=== PATIENT | male | born 1975 | race Caucasian/White ===

== ENCOUNTER 2021-04-26 17:45 | Outpatient (REF) | payer MEDICAID, SELFPAY ==
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
== END 2021-04-26 17:46 | disposition home or self-care (01) ==
LOC: HO.MRI 17:45
PROVIDERS: PCP Family Medicine; Visit Provider Family Medicine
DX: R42 Dizziness and giddiness (principal)
CPT/HCPCS: 70551

== ENCOUNTER 2021-05-17 08:43 | Outpatient (REF) | payer MEDICAID, SELFPAY ==
--- NOTE | ~2021-05-17 | MR_ITS ---
EXAMINATION: MRI BRAIN WITH IV CONTRAST CLINICAL INFORMATION: Call back to follow-up with contrast. COMPARISON: Brain MRI 04/26/2021. TECHNIQUE: Postcontrast imaging of the brain is obtained following the administration of 10 mL of Gadavist intravenous contrast without complication. 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 Signal changes at sites of DVAs have been proposed to be secondary to gliosis and/or chronic demyelination. There are no suspicious enhancing lesions intracranially.
== END 2021-05-17 08:44 | disposition home or self-care (01) ==
LOC: HO.MRI 08:43
PROVIDERS: PCP Family Medicine; Visit Provider Family Medicine
DX: R90.89 Other abnormal findings on diagnostic imaging of central nervous system (principal)
CPT/HCPCS: 70552; A9585

== ENCOUNTER → 2021-08-25 08:03 | Outpatient (REF) | payer MEDICAID, SELFPAY ==
--- NOTE | 2021-08-25 08:08 | CA_ITS ---
Transthoracic Echocardiogram Patient (Last, First, Middle): Kp Mackay L Gender: Male Date of : 1975 Age: 45 Procedure Date: 08/25/2021 Procedure Type: Transthoracic Echocardiogram Location: OP Height: 185.42 cm Weight: 90.72 kg BSA: 2.15 m2 Heart Rate: bpm BP: 115 / 80 mmHg Cable Supervisor: TITA John MD: Karla Barron DO Staff Developer: Chriss Carey MD Symptoms: R42 DIZZINESS GIDDINESS Study Quality: Fair ECG Rhythm: Sinus Conclusions: - 1. Normal LV systolic function with possible hypokinesis of the basal inferior segment 2. Normal cardiac valvular Doppler 3. Normal RV systolic pressure 4. No gross pericardial effusion Findings Left Ventricle Normal left ventricular size, thickness, and systolic function. The visually estimated ejection fraction is between 60-65%. Spectral Doppler is indicative of a normal filling pattern. Wall Motion Rest Echo Findings The basal inferior segment is hypokinetic. All other scored wall segments showed normal motion. Right Ventricle Normal right ventricular cavity size and systolic function. Atria Both atria are normal in size. There is no evidence of interatrial shunt. Aortic Valve Normal aortic valve structure and function. There is no aortic valve stenosis. There is no aortic valve regurgitation. Mitral Valve There is trace mitral valve regurgitation. There is no mitral valve stenosis. Pulmonic Valve The pulmonic valve is likely normal. Tricuspid Valve Normal tricuspid valve structure. There is trace tricuspid valve regurgitation. The right ventricular systolic pressure is normal. The right ventricular systolic pressure is 25 mmHg. Normal right atrial pressure. There is no evidence of pulmonary hypertension. Great Vessels All visible segments of the aorta are normal in size. The pulmonary artery was not well visualized. Venous The inferior vena cava is normal in size and collapses greater than 50% with inspiration. Pericardium/Pleural There is no evidence of pericardial effusion. Prior Study Comparison No significant change compared to prior study dated: 12/16/2019. Measurements 2D Linear Measurements IVSd: 0.95 0.6-0.9/0.6-1.0 cm LVIDd: 4.74 3.9-5.3/4.2-5.9 cm LVIDd Index: 2.20 2.4-3.2/2.2-3.1 cm/m2 LVIDs: 2.97 2.0-3.6 cm LVPWd: 0.91 0.7-1.1 cm Ao Root: 3.20 2.1-3.5 cm LA Diam: 3.40 2.7-3.8/3.0-4.0 cm LAIDs Index: 1.58 1.5-2.3 cm/m2 LV Mass: 188.10 67-162/88-224 g LV Mass Index: 87.49 43-95/49-115 g/m2 LVOT Diam: 2.20 3.0+(-)1.3 cm 2D Systolic Function EF 4C: 58.80 >55% EF 2C: 62.10 >55% EF BiP: 62.20 >55% Mitral Valve MV Pk E: 0.72 MV PK A: 0.46 MV Decel Time: 453.00 E/A: 1.60 E'Lateral: 12.40 E'Medial: 11.40 E/E' Med: 6.30 E/E' Lat: 5.80 PHT: 133.00 MVA PHT: 1.65 Decel Divide: 1.58 Aortic Valve AoV Pk Alec: 1.19 AoV Mn Alec: 0.87 AoV VTI: 0.28 AoV Pk Grad: 6.00 Aov Mn Grad: 3.00 CLIF Cont.VTI: 3.27 LVOT LVOT Pk Alec: 1.12 LVOT Mn Alec: 0.83 LVOT VTI: 0.24 LVOT Pk Grad: 5.00 LVOT Mn Grad: 3.00 LVOT Diam: 2.20 LVOT Area: 3.80 Diastolic Function MV Pk E: 0.72 MV Pk A: 0.46 E/A: 1.60 E'Medial: 11.40 E/E' Med: 6.30 E' Laterial: 12.40 E/E' Lat: 5.80 Right Ventricle TAPSE (mm): 1.99 TVS' Alec: 13.70 Tricuspid Valve TR Pk Aelc: 2.33 TR Pk Grad: 22.00 RA Press: 3.00 RVSP: 25.00 Great Vessels Aorta Ao Root-2D: 3.20 2.0-3.7 cm Ao Asc: 2.90 2.1-3.4 cm Ao Arch: 3.10 Updated in Other Vendor System with Status of Final Chriss Carey MD electronically signed on 08/25/2021 12:48:02 PM with status of Final
== END ==
LOC: HO.CARD 08:03
PROVIDERS: Visit Provider Family Medicine
DX: R42 Dizziness and giddiness (principal)
CPT/HCPCS: 93306

== ENCOUNTER 2023-02-15 10:45 | Outpatient (REF) | payer MEDICAID, SELFPAY ==
--- NOTE | ~2023-02-15 | XR_ITS ---
EXAMINATION: XR LUMBOSACRAL SPINE CLINICAL INFORMATION: Back pain COMPARISON: Previous x-ray August 2018 TECHNIQUE: Three views of the lumbosacral spine. FINDINGS: The vertebral bodies and posterior elements are normal. The disc spaces are preserved and the vertebral alignment is normal. The paraspinal soft tissues are normal. XR/XR lumbar spine 2-3V IMPRESSION: Unremarkable examination.
== END 2023-02-15 10:46 | disposition home or self-care (01) ==
LOC: HO.HHCX 10:45
PROVIDERS: Visit Provider Family Medicine
DX: M54.41 Lumbago with sciatica, right side (principal)
CPT/HCPCS: 72100

== ENCOUNTER 2023-07-10 11:26 | Outpatient (REF) | payer MEDICAID, SELFPAY ==
--- NOTE | ~2023-07-10 | XR_ITS ---
EXAMINATION: XR BILATERAL KNEES CLINICAL INFORMATION: Pain. COMPARISON: 09/12/2018. TECHNIQUE: 3 views right and 4 views left knee. FINDINGS: RIGHT KNEE: Joint spaces are maintained. No joint effusion. Alignment maintained. LEFT KNEE: Mild medial joint space narrowing. No joint effusion. Alignment maintained. XR/XR knee LT 3V IMPRESSION: RIGHT KNEE: Joint spaces are maintained. LEFT KNEE: Mild medial joint space narrowing.
--- NOTE | ~2023-07-10 | XR_ITS ---
EXAMINATION: XR BILATERAL KNEES CLINICAL INFORMATION: Pain. COMPARISON: 09/12/2018. TECHNIQUE: 3 views right and 4 views left knee. FINDINGS: RIGHT KNEE: Joint spaces are maintained. No joint effusion. Alignment maintained. LEFT KNEE: Mild medial joint space narrowing. No joint effusion. Alignment maintained. XR/XR knee RT 3V IMPRESSION: RIGHT KNEE: Joint spaces are maintained. LEFT KNEE: Mild medial joint space narrowing.
== END 2023-07-10 11:27 | disposition home or self-care (01) ==
LOC: HO.HHCX 11:26
PROVIDERS: Visit Provider Family Medicine
DX: M25.561 Pain in right knee (principal); M25.562 Pain in left knee
CPT/HCPCS: 73562

== ENCOUNTER 2023-07-24 12:55 | Outpatient (AMB) | payer MEDICAID, SELFPAY ==
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
[2023-07-24 13:15] VITALS: BP 132/60; PULSE 84; RESP 18; O2SAT 95; BMI 27.7
== END 2023-07-24 13:42 | disposition home or self-care (01) ==
PROVIDERS: PCP Family Medicine; Referring Provider Family Medicine; Visit Provider Registered Nurse Emergency
DX: M54.50 Low back pain, unspecified (principal); M47.816 Spondylosis without myelopathy or radiculopathy, lumbar region; M54.59 Other low back pain; Z79.891 Long term (current) use of opiate analgesic
CPT/HCPCS: 99204

== ENCOUNTER → 2023-07-24 12:55 | Outpatient (BNVA) | payer MEDICAID, SELFPAY | PROVIDERS: PCP Family Medicine; Referring Provider Family Medicine; Visit Provider Registered Nurse Emergency | DX: M54.41 Lumbago with sciatica, right side (principal); G89.29 Other chronic pain; M47.816 Spondylosis without myelopathy or radiculopathy, lumbar region; Z79.891 Long term (current) use of opiate analgesic | CPT/HCPCS: 99212 ==

== ENCOUNTER 2023-07-31 12:28 | Outpatient (AMB) | payer MEDICAID, SELFPAY ==
[2023-07-31 12:51] VITALS: BMI 27.7
--- NOTE | 2023-07-31 12:51 | A.OFFVIS_ITS ---
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 The patient describes his pain as sharp and severe in nature. He did injure his right knee approximately 1 year ago. He twisted his knee when he lost consciousness in his kitchen. Since that time his symptoms have gotten progressively worse in spite of continued non operative treatments. He has done physical therapy for 12 weeks over the last 6 months which aggravated his pain. He has also tried Tylenol and anti-inflammatory medicines which gave him minimal relief. He has had injections in the past which gave him no relief. He states that his right knee will give out several times per day. Allergies ibuprofen [Ibuprofen] Allergy (Unknown, Unverified 06/03/20 17:47) UNKNOWN morphine [Morphine] Allergy (Unknown, Unverified 06/03/20 17:47) UNKNOWN naproxen [From Naprosyn] Allergy (Unknown, Unverified 06/03/20 17:47) UNKNOWN Sulfa (Sulfonamide Antibiotics) Allergy (Unknown, Unverified 06/03/20 17:47) UNKNOWN tramadol [Tramadol] Allergy (Unknown, Unverified 06/03/20 17:47) UNKNOWN gabapentin Adverse Reaction (Severe, Verified 07/24/23 13:09) Unknown Erythromycin Allergy (Unknown, Uncoded 07/24/23 13:09) Unknown Sulfacet-R Allergy (Unknown, Uncoded 07/24/23 13:09) Unknown [facility] Medical History (Updated 07/31/23 @ 13:22 by Calvin Wells MD) BMI 26.0-26.9,adult Dizziness Migraine Bipolar disease, chronic Chronic gastroesophageal reflux disease Chronic hip pain Mild intermittent asthma Essential hypertension Hyperlipemia Chronic bilateral low back pain Allergic rhinitis Social History (Updated 07/31/23 @ 12:57 by Isabelle Akhtar CMA) Patient Tobacco Use Status: Never used Tobacco Current occupational status: unemployed Physical Exam Vital Signs: BMI result Body Mass Index 27.7 Const Other: Well-nourished well-developed very friendly male awake alert and oriented x3 in no acute distress Extrem Other: Bilateral lower extremity examination shows good capillary refill, no skin lesions noted, normal sensation light touch Right knee examination shows a minimal effusion, tenderness along his medial joint line, positive Lg's test, no instability Results Reviewed Results Reviewed: Standing full weight-bearing x-rays of the patient's right knee show minimal joint space narrowing, no acute bony abnormalities Assessment & Plan Assessment & Plan (1) Right knee pain: Code(s): M25.561 - Pain in right knee Plan: Mr. Mackay presents with progressively worsening right knee pain and mechanical symptoms most likely due to a tear of his medial meniscus. Thus, I will send the patient for an MRI of his right knee for further evaluation. I will see him back once the MRI is completed to discuss the findings and treatment options. Feel free to call me at any time should questions regarding his orthopedic management arise. Thank you very much for asking me to see this very friendly patient. I spent 22 minutes in reviewing the patient's records and imaging studies, seeing the patient and documenting in the medical record. Orders: Orders MR knee RT wo con Today M25.561 - Pain in right knee Referrals Pain Management Referral M54.59 - Other low back pain Coding Level of Care Code New Pt Level 2 (79614) Diagnoses Right knee pain M25.561
== END 2023-07-31 13:26 | disposition home or self-care (01) ==
PROVIDERS: PCP Family Medicine; Visit Provider Orthopaedic Surgery
DX: M25.561 Pain in right knee (principal)
CPT/HCPCS: 99202

== ENCOUNTER → 2023-07-31 12:28 | Outpatient (BNVA) | payer MEDICAID, SELFPAY | PROVIDERS: PCP Family Medicine; Visit Provider Orthopaedic Surgery | DX: M25.561 Pain in right knee (principal) | CPT/HCPCS: 99202 ==

== ENCOUNTER 2023-08-27 14:55 | Outpatient (AMB) | payer MEDICAID, SELFPAY ==
--- NOTE | 2023-08-27 14:57 | A.OFFVIS_ITS ---
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 Accompanied by: Self / Same As Patient Allergies ibuprofen [Ibuprofen] Allergy (Unknown, Verified 08/27/23 15:00) UNKNOWN morphine [Morphine] Allergy (Unknown, Verified 08/27/23 15:00) UNKNOWN naproxen [From Naprosyn] Allergy (Unknown, Verified 08/27/23 15:00) UNKNOWN Sulfa (Sulfonamide Antibiotics) Allergy (Unknown, Verified 08/27/23 15:00) UNKNOWN tramadol [Tramadol] Allergy (Unknown, Verified 08/27/23 15:00) UNKNOWN gabapentin Adverse Reaction (Severe, Verified 08/27/23 15:00) Unknown Erythromycin Allergy (Unknown, Uncoded 08/27/23 15:00) Unknown Sulfacet-R Allergy (Unknown, Uncoded 08/27/23 15:00) Unknown Medication List - Last Reviewed 08/27/23 by Tea Feng atenolol 25 mg PO DAILY atorvastatin 20 mg PO DAILY baclofen 10 mg PO TID baclofen 20 mg PO TID carbamazepine ER 50 mg PO DAILY cholecalciferol (vitamin D3) (Vitamin D3) 2,000 units PO DAILY clonidine HCl 0.1 mg PO DAILY divalproex ER 500 mg PO hydroxyzine HCl 25 mg PO Q4H loratadine 10 mg PO DAILY naloxone 4 mg/actuation intranasal olanzapine 5 mg PO BEDTIME omeprazole 20 mg PO DAILY oxycodone 10 mg PO Q4H PRN sumatriptan succinate 25 mg PO trazodone 100 mg PO BEDTIME HPI HPI Comments History of Present Illness Details Kp is here for cardiac consultation. He states that he has got multiple issues including bipolar disorder, Tourette's as well as PTSD. He frequently gets dizzy. This can happen whenever he is trying to get up from a seated position. Seems what he is describing is orthostatic. He is on so many medications from psychiatric standpoint and that may be playing a role. His blood pressure actually seems to be on the higher side at 140/80 mm Hg today. Otherwise, he states he has been noticing some swelling in his feet for the last few days. No clear-cut cardiac history in the past. No anginal-type symptoms. He states he was a smoker in the past and did get short of breath with activit y but that is improved after stopping smoking. [facility] Medical History (Updated 08/27/23 @ 15:13 by Naun Villa MD) BMI 26.0-26.9,adult Dizziness Migraine Bipolar disease, chronic Chronic gastroesophageal reflux disease Chronic hip pain Mild intermittent asthma Essential hypertension Hyperlipemia Chronic bilateral low back pain Allergic rhinitis Surgical History (Updated 08/27/23 @ 15:02 by Tea Feng) No pertinent past surgical history Family History (Updated 08/27/23 @ 15:02 by Tea Feng) Mother Stroke Heart attack Father Heart attack Social History Patient Tobacco Use Status: Never used Tobacco Current occupational status: unemployed Review of Systems Const Denies chills, Denies daytime sleepiness, Denies fatigue, Denies fever(s), Denies frequent falls, Denies night sweats, Denies snoring, Denies weakness, Denies weight gain and Denies weight loss Eyes Denies loss of vision ENT Denies hearing loss Card Denies chest pain, Denies chest pain with activity, Denies rapid heart rate, Denies edema, Denies claudication, Denies lightheadedness, Denies palpitations, Denies dyspnea, Denies dyspnea on exertion and Denies orthopnea Resp Denies cough, Denies excessive phlegm production, Denies dyspnea, Denies dyspnea on exertion, Denies snoring and Denies wheezing GI Denies abdominal pain, Denies hematochezia, Denies change in bowel habits, Denies change in stool character, Denies heartburn, Denies nausea and Denies vomiting Denies hematuria, Denies dysuria and Denies urinary frequency Musc Denies arthralgias, Denies muscle weakness, Denies numbness and Denies tingling Skin/Breast Denies nail changes and Denies rash Neuro Denies Abnormal speech present, Denies frequent falls, Denies loss of vision, Denies memory loss, Denies numbness, Denies tingling and Denies weakness Psych Denies depression and Denies memory loss Endo Denies fatigue and Denies palpitations Aller/Immun Denies wheezing Physical Exam Vital Signs: Last Vital Signs Pulse 87 08/27/23 14:59 BP 140/80 H 08/27/23 14:59 BMI result Body Mass Index 30.0 Const General: comfortable and no acute distress Orientation/consciousness: patient oriented x3 HEENT Other: Unremarkable Head: Yes normal to inspection Neck Neck: Yes normal visual inspection Chest Chest palpation & inspection: normal inspection of the chest Resp Auscultation: clear to auscultation bilaterally Cardio Palpation: normal PMI Heart sounds: S1 normal heart sound present, S2 normal heart sound present, no gallops, no murmurs and no rubs GI Palpation (GI): Soft to palpation Back/Spine/Pelvis Other: unremarkable Skin General skin exam: no rashes or lesions noted Neuro General: patient oriented x3 Speech: No Abnormal speech present Extrem Other: 1+ edema General: Yes normal to inspection Psych Mental Status: mental status grossly normal Office Procedures EKG Details: EKG with sinus rhythm at 87/Min; no significant ST-T changes and otherwise [place]remarkable[place] [id number], Complete Assessment & Plan Assessment & Plan (1) Leg edema: Code(s): R60.0 - Localized edema Plan: A prior echocardiogram had shown preserved LVEF of 60-65% and possible inferior hypokinesis. Will recheck echocardiogram for cardiac function. If there is any definitive evidence of wall motion abnormality, then may need further testing with a stress test or coronary CTA. If this is unremarkable, then other possibilities venous insufficiency/dependent edema. That will need appropriate studies. (2) Dizziness: Code(s): R42 - Dizziness and giddiness Plan: He is on so many medications from psychiatric standpoint and several of these have dizziness type side effects. That may be the primary etiology. Orthostatic blood pressure drop may also be possible. In that case, may need a tilt-table test. Orders: Orders CA echo transthoracic complete Today R60.0 - Localized edema Coding Level of Care Code New Pt Level 3 (33804) Diagnoses Leg edema R60.0 Dizziness R42 CPT Codes EKG - CPT: [id number]-[id number], Complete ([id number])
[2023-08-27 14:59] VITALS: BP 140/80; PULSE 87
== END 2023-08-27 15:19 | disposition home or self-care (01) ==
PROVIDERS: PCP Family Medicine; Visit Provider Internal Medicine
DX: R60.0 Localized edema (principal); R42 Dizziness and giddiness
CPT/HCPCS: 93010; 99203

== ENCOUNTER → 2023-08-27 14:55 | Outpatient (BNVA) | payer MEDICAID, SELFPAY | PROVIDERS: PCP Family Medicine; Visit Provider Internal Medicine | DX: R60.0 Localized edema (principal); R42 Dizziness and giddiness | CPT/HCPCS: 93005; 99202 ==

== ENCOUNTER 2023-09-27 14:00 | Outpatient (RCR) | payer MEDICAID, SELFPAY ==
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
--- NOTE | 2023-10-08 09:56 | MHC.PT.DC ---
[facility] [place] [facility] [place] [facility] [place] [facility] [address] Ashlee Morrison [address] [phone] F: [phone] F: [phone] F: [phone] F: [phone] Physical Therapy Discharge Report Diagnosis: Spondylosis without myelopathy or radiculopathy, lumbar region Low back pain, unspecified Date of Surgery: n/a Date of Evaluation: 08/14/23 Date of Discharge: 10/08/23 Treatments to Date: 3 Cancellations to Date: 3 No Shows to Date: 3 Discharge Status: Visit Non-compliance Discharge Summary: Pt was seen for PT from 08/14/23-09/27/23. Pt has had 3 no-shows since SOC. He is being D/C from skilled PT per [facility] attendance policy and visit non-compliance. Pt current level of function unknown at this time Electronically signed by: Kirstie Narvaez, PT, DPT Please sign and return to therapist. Thank you for your referral.
== END 2023-10-08 09:55 | disposition home or self-care (01) ==
LOC: HO.PT 14:00
PROVIDERS: PCP Family Medicine; Visit Provider Registered Nurse Emergency
DX: M47.816 Spondylosis without myelopathy or radiculopathy, lumbar region (principal); M54.50 Low back pain, unspecified
CPT/HCPCS: 97110; 97112; 97162

== ENCOUNTER 2024-05-01 12:49 | Outpatient (AMB) | payer MEDICAID, SELFPAY ==
--- NOTE | 2024-05-01 12:54 | HO.SPINEOV ---
Intake Visit Reasons: LBP Intake Note: Mr. Mackay is here today c/o severe low back pain that radiates to both legs. 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 Allergies ibuprofen [Ibuprofen] Allergy (Severe, Verified 05/01/24 13:51) Vomiting naproxen [From Naprosyn] Allergy (Severe, Verified 05/01/24 13:51) swelling morphine [Morphine] Allergy (Unknown, Verified 03/25/24 12:17) UNKNOWN Sulfa (Sulfonamide Antibiotics) Allergy (Unknown, Verified 03/25/24 12:17) UNKNOWN tramadol [Tramadol] Allergy (Unknown, Verified 03/25/24 12:17) UNKNOWN gabapentin Adverse Reaction (Severe, Verified 03/25/24 12:17) Unknown Erythromycin Allergy (Unknown, Uncoded 03/25/24 12:17) Unknown Sulfacet-R Allergy (Unknown, Uncoded 03/25/24 12:17) Unknown Assessment & Plan Assessment & Plan (1) Myofascial low back pain: Code(s): M54.50 - Low back pain, unspecified Category: Medical (2) Lumbar spondylosis: Code(s): M47.816 - Spondylosis without myelopathy or radiculopathy, lumbar region Category: Medical Plan Dear Dr Barron Thank you for referring Mr Mackay to our office today. He is a 48-year-old gentleman presents to the office today with 2 years of back pain. He tells me he was at work and bent over to get something and immediately felt a pop. He gets tingling down his legs and burning sensations from time to time. He has been through an extensive course of conservative treatment over the last 2 years including PT, chiropractic and cortisone injections. Nothing seems to help. He takes oxycodone and baclofen. He is allergic to anti-inflammatories. He comes in today with an MRI done at [place] showing a mild disc degeneration at L5-S1. PMH: He has history of bipolar disorder, hypertension, other than that he tells me he is reasonably healthy. Social hx: He smokes marijuana daily, no cigarettes or recreational drugs or alcohol Medications: Oxycodone, baclofen, divalproex, Analia iodine, atenolol, loratadine, omeprazole Allergies: Please see the extensive LP Amina list of his allergies Physical exam: No acute distress, strength and gait normal Imaging review: Lumbar MRI done at [place] shows very mild degenerative disc at L5-S1, normal alignment and overall retained quality of his discs throughout the rest of his lumbar spine. Impression: 48-year-old male with spontaneous onset of back pain when bending over to get something at work which has not gone away for 2 years. I see a very mild degenerative disc at L5 S1, but nothing that lends itself to surgery. I do not understand why he has had back pain for so long without any resolution despite all the conservative treatment. I encouraged him to follow up with his pain management team at [facility]. Thank you for allowing us to care for your patient. The total time spent with this visit with this patient was 45 minutes reviewing history, physical exam, lumbar imaging review, and implementation of treatment plan or further diagnostic testing Vincent Jones MD,PhD [facility] Coding Level of Care Code New Pt Level 4 (38855) Diagnoses Myofascial low back pain M54.50 Lumbar spondylosis M47.816
== END 2024-05-01 14:37 | disposition home or self-care (01) ==
PROVIDERS: PCP Family Medicine; Referring Provider Family Medicine; Visit Provider Physician Assistant
DX: M54.50 Low back pain, unspecified (principal); M47.816 Spondylosis without myelopathy or radiculopathy, lumbar region
CPT/HCPCS: 99204

== ENCOUNTER → 2024-05-01 12:49 | Outpatient (BNVA) | payer MEDICAID, SELFPAY | PROVIDERS: PCP Family Medicine; Visit Provider Physician Assistant | DX: M47.816 Spondylosis without myelopathy or radiculopathy, lumbar region (principal) | CPT/HCPCS: 99212 ==

== ENCOUNTER 2024-05-06 10:11 | Outpatient (REF) | payer MEDICAID, SELFPAY ==
--- NOTE | ~2024-05-06 | MR_ITS ---
EXAMINATION: MR KNEE WITHOUT CONTRAST, RIGHT CLINICAL INFORMATION: Right knee pain COMPARISON: Radiographs 07/10/2023 TECHNIQUE: MRI of the knee without contrast was performed using routine sequences on a high-field scanner. FINDINGS: MENISCI: Medial Meniscus: Intact Lateral Meniscus: Intact LIGAMENTS: Cruciate: Intact Collateral: Intact EXTENSOR MECHANISM: Intact ARTICULAR CARTILAGE/BONE: Patellofemoral Compartment: Normal Medial Compartment: Normal Lateral Compartment: Normal JOINT FLUID AND BURSAE: Normal. Mild edema of the gastrocnemius muscles and proximal visualized peroneal muscles is nonspecific and could represent early denervation change. MR/MR knee RT wo con IMPRESSION: 1. No internal derangement. 2. Mild edema of the gastrocnemius muscles and proximal peroneal muscles is nonspecific and could represent early denervation change. Electronically signed by: Vivek Phillip MD 05/11/2024 11:57 AM EDT
== END 2024-05-06 10:12 | disposition home or self-care (01) ==
LOC: HO.MRI 10:11
PROVIDERS: PCP Family Medicine; Visit Provider Orthopaedic Surgery
DX: M25.561 Pain in right knee (principal)
CPT/HCPCS: 73721

== ENCOUNTER 2024-05-22 13:02 | Outpatient (AMB) | payer MEDICAID, SELFPAY ==
--- NOTE | 2024-05-22 13:08 | MHC.OFFVIS ---
Intake Visit Reasons: MRI review of Right knee Intake Note: Kp is a 48 year old male who presents to the office today for a MRI review of his right knee. The patient states that his knee discomfort has gotten somewhat better since his last visit. Reports mild intermittent discomfort in his knee. He denies any locking or giving way. He states that at this point his right knee discomfort is tolerable to him. Allergies ibuprofen [Ibuprofen] Allergy (Severe, Verified 05/22/24 13:08) Vomiting naproxen [From Naprosyn] Allergy (Severe, Verified 05/22/24 13:08) swelling morphine [Morphine] Allergy (Unknown, Verified 05/22/24 13:08) UNKNOWN Sulfa (Sulfonamide Antibiotics) Allergy (Unknown, Verified 05/22/24 13:08) UNKNOWN tramadol [Tramadol] Allergy (Unknown, Verified 05/22/24 13:08) UNKNOWN gabapentin Adverse Reaction (Severe, Verified 05/22/24 13:08) Unknown Erythromycin Allergy (Unknown, Uncoded 05/22/24 13:08) Unknown Sulfacet-R Allergy (Unknown, Uncoded 05/22/24 13:08) Unknown Medication List - Last Reconciled 05/22/24 by Calvin Wells MD atenolol 25 mg PO DAILY atorvastatin 20 mg PO DAILY baclofen 10 mg PO TID baclofen 20 mg PO TID carbamazepine ER 50 mg PO DAILY cholecalciferol (vitamin D3) (Vitamin D3) 2,000 units PO DAILY clonidine HCl 0.1 mg PO DAILY divalproex ER 500 mg PO hydroxyzine HCl 25 mg PO Q4H loratadine 10 mg PO DAILY naloxone 4 mg/actuation intranasal olanzapine 5 mg PO BEDTIME omeprazole 20 mg PO DAILY oxycodone 10 mg PO Q4H PRN sumatriptan succinate 25 mg PO trazodone 100 mg PO BEDTIME PFSH Medical History (System 03/25/24 @ 12:17 by Aurelia Falk) BMI 26.0-26.9,adult Dizziness Migraine Bipolar disease, chronic Chronic gastroesophageal reflux disease Chronic hip pain Mild intermittent asthma Essential hypertension Hyperlipemia Chronic bilateral low back pain Allergic rhinitis Surgical History (System 03/25/24 @ 12:17 by Aurelia Falk) No pertinent past surgical history Family History (System 03/25/24 @ 12:17 by Aurelia Falk) Mother Stroke Heart attack Father Heart attack Social History (System 03/25/24 @ 12:17 by Aurelia Falk) Patient Tobacco Use Status: Never used Tobacco Current occupational status: unemployed Physical Exam Const Other: Well-nourished well-developed very friendly male awake alert and oriented x3 in no acute distress Extrem Other: Bilateral lower extremity examination shows good capillary refill, no skin lesions noted, normal sensation light touch Right knee examination shows a minimal effusion, minimal crepitus with range of motion, no medial or lateral joint line tenderness, negative Lg's test, no instability Results Reviewed Results Reviewed: MRI of the patient's right knee shows minimal diffuse degenerative changes, no ligamentous or meniscus tearing Assessment & Plan Assessment & Plan (1) Right knee pain: Code(s): M25.561 - Pain in right knee Category: Medical Plan Mr. Mackay presents with right knee discomfort due to early degenerative joint disease. I had a lengthy discussion with the patient regarding the treatment options. At this point the patient's symptoms are tolerable to him. We will hold off on a cortisone injection. He will continue with his activity modifications. He will follow up with me on an as-needed basis should his symptoms worsen in any way. Feel free to call me at any time should questions regarding his orthopedic management arise. I spent 21 minutes in reviewing the patient's records and imaging studies, seeing the patient and documenting in the medical record. Coding Level of Care Code Est Pt Level 3 (37050) Complex EM visit Add On G2211 Diagnoses Right knee pain M25.561
== END 2024-05-22 13:38 | disposition home or self-care (01) ==
PROVIDERS: PCP Family Medicine; Referring Provider Family Medicine; Visit Provider Orthopaedic Surgery
DX: M25.561 Pain in right knee (principal)
CPT/HCPCS: 99213

== ENCOUNTER → 2024-05-22 13:02 | Outpatient (BNVA) | payer MEDICAID, SELFPAY | PROVIDERS: PCP Family Medicine; Visit Provider Orthopaedic Surgery | DX: M25.561 Pain in right knee (principal) | CPT/HCPCS: 99212 ==

== ENCOUNTER 2024-08-05 10:19 | Outpatient (REF) | payer MEDICAID, SELFPAY ==
[2024-08-05 11:16] LABS: Hematocrit 45.4 % (42.0-52.0); Hemoglobin 15.6 g/dl (14.0-18.0); Mean Corpuscular HGB Conc 34.4 g/dl (31.0-36.0); Mean Corpuscular Hemoglobin 28.4 pg (27.0-33.0); Mean Corpuscular Volume 82.7 fL (80.0-98.0); Mean Platelet Volume 11.5 fL (9.4-12.4); Platelet Count 263 X10*3/uL (160-400); Red Blood Count 5.49 X10*6/uL (4.60-5.80); White Blood Count 5.7 X10*3/uL (4.8-10.8)
[2024-08-05 11:30] LABS: Estimated Average Glucose 103 mg/dL; Hemoglobin A1C 132.9808 umol/L; Hemoglobin A1c % 5.2 % (<6.0); Total Hemoglobin (HGBA1C) 4018.9604 umol/L
[2024-08-05 12:06] LABS: Prostate Specific Antigen Scr 0.64 ng/mL (<0.05-4.0)
[2024-08-05 12:17] LABS: Alanine Aminotransferase 45 U/L (0-40); Albumin Level 4.7 g/dL (3.5-5.0); Alkaline Phosphatase 74 U/L (39-117); Anion Gap 12 (12-20); Aspartate Amino Transferase 28 U/L (5-37); Bilirubin Direct 0.3 mg/dL (0.0-0.5); Bilirubin Total 0.7 mg/dL (0.0-1.0); Blood Urea Nitrogen 13 mg/dL (9-16); Calcium 9.5 mg/dL (8.4-10.2); Carbon Dioxide 25 mmol/L (22-29); Chloride 108 mmol/L (96-108); Cholesterol 146 mg/dL (<200); Estimated Glomerular Filt Rate > 60; Free T4 (Free Thyroxine) 1.33 ng/dL (0.71-1.85); Glucose Random 89 mg/dL (60-115); HDL Cholesterol 31 mg/dL (>40); LDL Cholesterol Calculated 91 mg/dL (<100); Potassium 3.8 mmol/L (3.3-5.1); Sodium 141 mmol/L (135-145); Thyroid Stimulating Hormone 1.01 uIU/mL (0.32-4.0); Total Protein 7.2 g/dL (6.5-8.0); Triglycerides 123 mg/dL (<150); Vitamin D 25-OH Total 41.6 ng/mL (>30)
[2024-08-05 12:22] LABS: Hepatitis A Antibody IgG Nonreactive (Nonreactive); ~Hepatitis A Antibody IgG 0.23 S/CO (0.00-0.99)
[2024-08-05 12:26] LABS: HBc Num1 0.09 S/CO (0.00-0.79); HIV AB/AG Nonreactive (Nonreactive); HIV Num 1 0.04 S/CO (0.00-0.99); Hepatitis B Core Antibody Nonreactive (Nonreactive); Hepatitis B Surface Antigen Negative (Negative); ~HepC Num1 0.04 S/CO (0.00-0.79); ~Hepatitis B Surface Antibody NONREACTIVE (Nonreactive); ~Hepatitis C Antibody Nonreactive (Nonreactive)
[2024-08-05 14:16] LABS: Creatinine Urine 591.05 mg/dL; Microalbum/Creatinine Ratio Ur 13.5 ug/mg cr (<30)
[2024-08-05 15:07] LABS: CT PCR NOT DETECTED (Not Detect.); NG PCR NOT DETECTED (Not Detect.)
[2024-08-07 10:57] LABS: RPR Rapid Plasma Reagin NON-REACTIVE (NON-REACTIVE)
== END 2024-08-05 10:20 | disposition home or self-care (01) ==
LOC: HO.HHCL 10:19
PROVIDERS: Visit Provider Family Medicine
DX: Z00.00 Encounter for general adult medical examination without abnormal findings (principal); I10 Essential (primary) hypertension; N52.9 Male erectile dysfunction, unspecified
CPT/HCPCS: 80048; 80061; 80076; 82043; 82306; 82570; 83036; 84153; 84439; 84443; 85027; 86592; 86704; 86706; 86708; 86803; 87340; 87389; 87491; 87591